=== PATIENT | female | born 1940 | race Caucasian/White ===

== ENCOUNTER → 2019-04-25 12:22 | Outpatient (CLI) | payer OTHER, SELFPAY ==
--- NOTE | 2019-04-25 | DI.MRI.S_ITS ---
PROCEDURE: MR LUMBAR SPINE WO CON INDICATIONS: Foot drop, left foot TECHNIQUE: Noncontrast sagittal T1 spin echo and T2 fast echo, sagittal STIR, axial T1 and T2 fast spin echo through the lumbar spine. In cases with scoliosis, additional coronal T2 fast spin echo may be performed. COMPARISON: [facility] [place], CR, XR LUMBAR SPINE WITH OLBIQUES PLUS FLEXION EXTENSION, 04/11/2019, 13:26. FINDINGS: Image quality: Excellent. Alignment and Curvature: There is normal bony alignment. Bone Marrow: Marrow is of normal overall signal. No acute vertebral body compression fractures. Spinal Cord: Conus medullaris terminates at the T12-L1 level. Visualized cord demonstrates normal signal and size. Paraspinous Soft Tissues: No paravertebral masses. L1-L2: Preserved disc height. Mild disc desiccation. There is mild posterior disc bulge. The central canal is patent. No foraminal stenosis. No definitive nerve root impingement. L2-L3: Mild loss of disc height and disc desiccation. There is diffuse posterior disc bulge and disc osteophyte complex. Moderate right and mild left facet arthropathy. Hypertrophy of ligamentum flavum. The central canal is moderately narrowed. Moderate right and mild left foraminal stenosis. No definitive nerve root impingement. L3-L4: Severe loss of disc height and disc desiccation. There is diffuse posterior disc bulge and disc osteophyte complex. Severe bilateral facet arthropathy. Hypertrophy of ligamentum flavum. The central canal is severely narrowed. Severe right and moderate left left foraminal stenosis. Suspect right L4 nerve root impingement. L4-L5: Severe loss of disc height and disc desiccation. There is diffuse posterior disc bulge and disc osteophyte complex. Severe bilateral facet arthropathy. Hypertrophy of ligamentum flavum. The central canal is severely narrowed. [id number] right and [id number] left foraminal stenosis. Possible right L5 nerve root impingement. L5-S1: Severe loss of disc height and disc desiccation. There is diffuse posterior disc bulge and disc osteophyte complex. Severe left and mild right facet arthropathy. The central canal is mildly narrowed. Moderate left and mild right foraminal stenosis. No nerve root impingement. IMPRESSION: 1. Multilevel degenerative disc disease and facet arthropathy as described. 2. Severe central canal stenosis at L3-L4 and L4-L5. 3. Multilevel foraminal stenoses as described. Dictated by: Lana Torres M.D. on 04/25/2019 at 16:35 Approved by: Lana Torres M.D. on 04/25/2019 at 18:27
== END ==
PROVIDERS: PCP Family Medicine; Visit Provider Physical Medicine & Rehabilitation
DX: M21.372 Foot drop, left foot (principal); M51.36 Other intervertebral disc degeneration, lumbar region; M51.37 Other intervertebral disc degeneration, lumbosacral region; M47.816 Spondylosis without myelopathy or radiculopathy, lumbar region; M47.817 Spondylosis without myelopathy or radiculopathy, lumbosacral region; M48.061 Spinal stenosis, lumbar region without neurogenic claudication; M48.07 Spinal stenosis, lumbosacral region
CPT/HCPCS: 72148